=== PATIENT | male | born 2000 | race Two or more races ===

== ENCOUNTER 2018-11-30 18:44 | Emergency (ER) | payer BC ==
[2018-11-30 18:53] VITALS: BP 136/71
[2018-11-30] MEDS ORDERED: Lidocaine/Epineph/Tetraca SOL* (LET solution) 4 ML BTL TOPICAL ONE (19:16)
--- NOTE | 2018-11-30 19:20 | ED ---
Throat Pain/Nasal Congestion - HPI Summary HPI Summary: A 18 y/o male presents to [facility] with a chief complaint of a possible broken nose since around 18:00 11/30/18. Per triage note, "Pt concerned he has a broken nose. States he was playing basketball when he was accidentally elbowed on the nose. 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 He rates his pain currently as a 6/10 in severity. - History of Current Complaint Chief Complaint: EDGeneral Time Seen by Provider: 11/30/18 19:02 Hx Obtained From: Patient Onset/Duration: Sudden Onset, Lasting Hours - 1 hour, Still Present Severity: Moderate Associated Signs And Symptoms: Positive: Negative - eye pain Cough: None - Allergies/Home Medications Allergies/Adverse Reactions: Allergies Allergy/AdvReac Type Severity Reaction Status Date / Time Penicillins Allergy Unknown Verified 11/30/18 18:53 Reaction Details Home Medications: Home Medications NK [No Home Medications Reported] 11/30/18 [History Confirmed 11/30/18] PMH/Surg Hx/FS Hx/Imm Hx Endocrine/Hematology History: Denies: Hx Diabetes Cardiovascular History: Denies: Hx Hypercholesterolemia, Hx Hypertension Infectious Disease History: No Infectious Disease History: Denies: Traveled Outside the [place] in Last 30 Days - Family History Known Family History: Negative: Cardiac Disease, Hypertension, Diabetes - Social History Alcohol Use: None Hx Substance Use: No Substance Use Type: Reports: None Hx Tobacco Use: No Smoking Status (MU): Never Smoked Tobacco Review of Systems Negative: Fever Eyes: Negative - eye pain ENT: Other - Positive: possible broken nose, nose bleed RUBBER MOLDER All Other Systems Reviewed And Are Negative: Yes Physical Exam - Summary Physical Exam Summary: Appearance: Well-appearing, Well-nourished, lying in bed comfortably Skin: Warm, dry, no obvious rash Eyes: sclera anicteric, no conjunctival pallor ENT: Obvious deformity nose, deviated septum to the left, no septal hematoma, minimal bleeding on the left nearly stopped, no other findings of facial trauma , mucous membranes moist, pharynx appears normal Neck: Supple, nontender Respiratory: Clear to auscultation, no signs of respiratory distress Cardiovascular: Normal S1, S2. No murmurs. Normal distal pulses in tibial and radial bilaterally. Abdomen: Soft, nontender. Musculoskeletal: Normal, Strength/ROM Intact Neurological: A&Ox3, awake and alert, mentation is normal, speech is fluent and appropriate Psychiatric: affect is normal, does not appear anxious or depressed Triage Information Reviewed: Yes Vital Signs On Initial Exam: Initial Vitals Temp Pulse Resp BP Pulse Ox 98.7 F 87 16 136/71 98 11/30/18 18:49 11/30/18 18:49 11/30/18 18:49 11/30/18 18:49 11/30/18 18:49 Vital Signs Reviewed: Yes Diagnostics - Vital Signs Vital Signs Temp Pulse Resp BP Pulse Ox 11/30/18 18:49 98.7 F 87 16 136/71 98 - Laboratory Lab Statement: Any lab studies that have been ordered have been reviewed, and results considered in the medical decision making process. EENT Course/Dx - Course Course Of Treatment: A 18 y/o male presents to [facility] with a chief complaint of a possible broken nose since around 18:00 11/30/18 after being elbowed in the face playing basketball. The physical exam revealed obvious deformity nose, deviated septum to the left left, no septal hematoma, minimal bleeding on the left nearly stopped, no findings of facial trauma. The patient will be discharged and is agreeable with this plan. - Diagnoses Provider Diagnoses: Nasal fracture Discharge - Sign-Out/Discharge Documenting (check all that apply): Patient Departure - DC - Discharge Plan Condition: Improved Disposition: HOME Patient Education Materials: Nasal Fracture (ED) Referrals: Gt Marte MD [Medical Doctor] - Additional Instructions: Contact the ENT surgeon listed in the morning and tell them you were injured and have a broken and deviated nose. They will likely give you an appointment for later in the week, and they will probably arrange for a brief outpatient surgery to get the nose back in alignment. In the meantime, make sure to ice the nose several times a day to keep pain and swelling down. - Billing Disposition and Condition Condition: IMPROVED Disposition: Home - Attestation Statements Document Initiated by Scribe: Yes Documenting Scribe: Francisco Parra Provider For Whom Darrellibe is Documenting (Include Credential): Vijay Mitchell MD Scribe Attestation: IFrancisco, scribed for Vijay Mitchell MD on 12/01/18 at 1716. Scribe Documentation Reviewed: Yes Provider Attestation: The documentation as recorded by the darrellibe, Francisco Parra accurately reflects the service I personally performed and the decisions made by me, Vijay Mitchell MD Status of Darrellibe Document: Viewed
== END 2018-11-30 19:33 | disposition home or self-care (01) ==
LOC: EDBD → ED 18:44
DX: S02.2XXA Fracture of nasal bones, initial encounter for closed fracture (principal); W50.0XXA Accidental hit or strike by another person, initial encounter; Y93.67 Activity, basketball; Y92.9 Unspecified place or not applicable
CPT/HCPCS: 99281